=== PATIENT | female | born 1995 | race Caucasian/White ===

== ENCOUNTER 2016-10-05 02:08 | Observation (INO) ==
[2016-10-05] MEDS ORDERED: *HR* Morphine 2 MG/ML SYRINGE IVP ONE (02:56)
--- NOTE | 2016-10-05 03:05 | Emergency Department Note ---
Disposition Clinical Impression: Post-tonsillectomy hemorrhage Disposition: Admitted As Inpatient Condition: Good General Adult HPI - General Chief complaint: ED General Medical Stated complaint: bleeding from tonsillectomy site Time Seen by Provider: 10/05/16 02:18 Source: patient Limitations: no limitations Nursing Notes Reviewed: Yes Vital Signs Reviewed: Yes - History of Present Illness HPI Narrative: Patient is a 21-year-old female with a past medical history of bilateral tonsillectomy and deviated nasal septum repair 5 days ago presenting with a complaint of bleeding that started prior to arrival this evening. Patient states that she woke up from sleep and there was blood running down the back of her throat and she feels as if there is a large swelling on the left side of her throat when she swallows. She is not had any problems since the surgery 5 days ago. She states she can feel the blood draining down the back of her throat and she tries to spit up. She denies feeling lightheaded or presyncopal. Pain Scale: 7 - Related Data Home Medications Medication Instructions Recorded Confirmed Amoxicillin [Amoxil] 500 mg PO TID 10/05/16 10/05/16 HYDROcodone/Acet 7.5/325 mg [[place] 1 tab PO Q4-6H PRN 10/05/16 10/05/16 7.5-325 mg] Norethindrone-E.estradiol-Iron [Lo 1 tab PO DAILY 10/05/16 10/05/16 Loestrin Fe 1-10 Tablet] Prednisolone Sod Phosphate 10 ml PO DAILY 10/05/16 10/05/16 [Prednisolone Sodium Phosphate] Allergies Allergy/AdvReac Type Severity Reaction Status Date / Time cephalexin [From Keflex] Allergy Vomiting Verified 10/05/16 11:11 clindamycin Allergy Hives Verified 10/05/16 11:11 Oxycodone [From OxyContin] Allergy Hives Verified 10/05/16 11:11 All systems ED: reviewed and negative except as stated. Constitutional: Denies: fever, chills ENT ED: Reports: throat pain Cardiovascular: Denies: chest pain, palpitations Respiratory: Denies: cough, dyspnea Gastrointestinal: Denies: abdominal pain, nausea, vomiting Past Medical History - Past Medical History Medical history: Reports: other Surgical history: Reports: cholecystectomy Psychiatric history: Reports: no psych history LEGAL MANAGER history: Reports: non-contributory - Social History Smoking Status: Never smoker Smokeless Tobacco Status: No Alcohol use: Reports: none Drug use: Reports: none Physical Exam Patient is sitting up in bed she is holding a Nyla cup that she is spitting a reddish clear sputum into. - General Limitations: no limitations General appearance: alert, in no apparent distress - Head Head exam: atraumatic, normocephalic, normal inspection - Eye Eye exam: Present: normal appearance - ENT ENT exam: mucous membranes moist, other (Patient has wounds in the back of her throat status post tonsillectomy they are bright red I cannot see any active bleeding however I do see the presence of a large blood clot on the left side of her posterior oropharynx.) - Neck Neck exam: Present: normal inspection, full ROM, trachea midline, other (I did not appreciate any palpable masses, however she does state she has a sensation of a large swelling on the inside of her throat when she is swallowing.) - Chest Chest inspection: Present: normal inspection, symmetric chest wall rise - Respiratory Respiratory exam: Present: normal lung sounds bilaterally. Absent: respiratory distress, wheezes - Cardiovascular Cardiovascular exam: Present: regular rate, normal rhythm, normal heart sounds - Abdominal Exam Abdominal exam: Present: soft, Non-Tender, normal bowel sounds - Extremities Exam Extremities exam: Present: normal inspection, normal capillary refill Course Course Narrative: Patient presents with a complaint of posterior oropharynx bleeding status post tonsillectomy and deviated nasal septum repair 5 days ago. I do not appreciate any active bleeding on exam, however her wounds from her tonsillectomy do appear to be bright red and bloody and she does have a blood clot in the left posterior oropharynx. She is also actively spitting up blood and saliva into a taxicab. I gave the patient ice cold water to drink. We started an IV. I ordered her morphine because she states that she was due for her Vicodin at home for pain. I consulted with Dr. Hyde ENT on-call and she states she will come in to see the patient and requested that we order H&H and coags. - Reevaluation(s) Reevaluation #1: I spoke with Dr. Hyde with ENT on the phone and she requested we order coags and H&H and she will see the patient in the emergency department. Time: 03:00 Reevaluation #2: Patient was evaluated by Dr. Hyde in the room. Dr. Padron took the patient to surgery that she can be properly sedated and have the wound cauterized. She believed this would be the most comfortable approach for the patient. Time: 03:30 Vital Signs Temperature 98 F 10/05/16 02:12 Pulse Rate 111 10/05/16 02:12 Respiratory Rate 16 10/05/16 02:12 Blood Pressure 116/82 10/05/16 02:12 O2 Sat by Pulse Oximetry 98 10/05/16 02:12 Temperature 97.4 F L 10/05/16 11:42 Pulse Rate 84 10/05/16 11:42 Respiratory Rate 16 10/05/16 11:42 Blood Pressure 126/73 10/05/16 11:42 O2 Sat by Pulse Oximetry 97 10/05/16 11:42 Oxygen Delivery Oxygen Delivery Room Air Medical Decision Making - Medical Records Medical records reviewed: Yes I reviewed the patient's medical records. - Lab Data Result diagrams: 10/05/16 03:15 Lab Results 10/05/16 10/05/16 10/05/16 Range/Units 03:15 03:15 03:25 Hgb 11.2 L (11.5-15.4) g/dL Hct 33.3 L (35.3-44.9) % PT 12.4 H (9.4-12.1) Seconds INR 1.1 APTT 25.2 L (26.0-36.0) Seconds Blood Type B POSITIVE Antibody Screen NEGATIVE Attestation Statement - Attestation Attestation: I examined this patient and my medical decision-making was reviewed with the Resident Physician. I agree with the documented findings, disposition and treatment plan as described except to the extent set forth below. Patient to ED with post-tonsillectomy bleeding. Patient [address] Hinton. She woke up during the night with blood in her throat. She has spit up half of a cup of blood. On exams patient has large clots around bilateral postoperative sites in her posterior pharynx. Plan. Patient discussed with ENT was at bedside now. Patient going to the OR.
[2016-10-05] MEDS ORDERED: 0.9 % Sodium Chloride 1,000 ML ONE (03:27)
[2016-10-05 03:30] LABS: Hematocrit 33.3 % (35.3-44.9); Hemoglobin 11.2 g/dL (11.5-15.4)
[2016-10-05 03:36] LABS: INR 1.1; Prothrombin Time 12.4 Seconds (9.4-12.1)
[2016-10-05 03:38] LABS: Activated Partial Thrombo Time 25.2 Seconds (26.0-36.0)
[2016-10-05] MEDS ORDERED: *HR* Midazolam HCl 2 MG/2 ML VIAL ONE (03:44)
[2016-10-05] MEDS ORDERED: *HR* FentaNYL (PF) 100 MCG/2 ML VIAL ONE (03:44)
[2016-10-05] MEDS ORDERED: *HR* Propofol 200 MG/20 ML VIAL IVP ONE ×2 (03:44→04:05)
[2016-10-05] MEDS ORDERED: *HR* Succinylcholine 200 MG/10 ML VIAL IVP ONE (03:44)
[2016-10-05] MEDS ORDERED: *HR* Rocuronium Bromide 50 MG/5 ML VIAL ONE (03:44)
[2016-10-05] MEDS ORDERED: Lidocaine -MPF 2% 2 ML VIAL ONE (03:44)
[2016-10-05] MEDS ORDERED: Ondansetron 4 MG/2 ML VIAL ONE (03:45)
[2016-10-05] MEDS ORDERED: Dexamethasone 4 MG/ML VIAL ONE (03:45)
--- NOTE | 2016-10-05 04:22 | Anesthesia Evaluation PreOp ---
Date of Encounter: 10/05/16 Time of Encounter: 04:22 - Past History Planned Operation: Cauterization Post-Tonsillectomy Bleed Cardiac History: Denies any Significant Hx Pulmonary History: Denies Any Significant HX BUNDLE TIER History: Denies Any Significant HX Other Medical History: Denies Any Significant HX Anesthesia History: Past Anesthesia, Problems (PONV) Test: Negative (10/05/2016) Alcohol Use: none Drug use: none Medications and Allergies Allergies cephalexin [From Keflex] Allergy (Verified 10/05/16 02:16) Vomiting clindamycin Allergy (Verified 01/15/15 13:12) Hives Oxycodone [From OxyContin] Allergy (Verified 01/15/15 13:12) Hives - Meds/Allergy Pre-op Review Medications Reviewed: Yes Allergies Reviewed: Yes Beta Blockers on Current Med List: No Anesthesia Results - Labs 10/05/16 03:15 Laboratory Tests 10/05/16 03:15 PT 12.4 H INR 1.1 APTT 25.2 L - Imaging EKG: report reviewed (01/15/2015 SR) Anesthesia Exam Vital Signs/O2 Sat, Most Current Temp Pulse Resp BP Pulse Ox 98 F 111 16 116/82 98 10/05/16 02:12 10/05/16 02:12 10/05/16 02:12 10/05/16 02:12 10/05/16 02:12 Height: 6'1''/1.85 m Weight: 147 lbs/66.86 kg NPO (# of Hours): 7 Pain Scale: 0 Pain Scale Used: Numeric (1 - 10) - HEENT Pupil (Motor): EOMI Mallampati: II Teeth: Normal Oral Opening: Greater than 3 - BUNDLE TIER LOC: Oriented BUNDLE TIER Motor: Normal RUE, Normal LUE, Normal RLE, Normal LLE, Normal Face BUNDLE TIER Sensory: Normal: RUE, LUE, RLE, LLE, Face - Cardiac Rhythm: Regular Murmur: None - Pulmonary Breath Sounds: bilateral Clear Respiratory Effort: Symmetrical Anesthesia Assess/Plan ASA Score: 1 Modified Brittani Scale for Level of Consciousness: Cooperative, oriented, and tranquil Anesthetic Plan: General Monitoring Plan: Standard Monitors Recovery Plan: PACU
[2016-10-05] MEDS ORDERED: *HR* Morphine 2 MG/ML SYRINGE IVP PRN (04:33)
[2016-10-05] MEDS ORDERED: *HR* Promethazine 25 MG/ML VIAL IVP PRN (04:33)
[2016-10-05] MEDS ORDERED: Scopolamine Patch 1.5 MG PATCH.TD72 ONE (04:33)
[2016-10-05] MEDS ORDERED: *HR* Morphine 10 MG/ML VIAL ONE (04:56)
--- NOTE | 2016-10-05 05:41 | Anesthesia Evaluation Post Op ---
Date of Encounter: 10/05/16 Time of Encounter: 05:39 - Vital Signs Vital Signs: Vital Signs/O2 Sat, Most Current Temp Pulse Resp BP Pulse Ox 97.9 F 87 14 130/90 99 10/05/16 05:15 10/05/16 05:35 10/05/16 05:35 10/05/16 05:35 10/05/16 05:35 - Lungs Lungs: Clear Ascult./Percussion - Airway Airway: Non-obstructed - Cardiovascular Regular Rate - Mental Status Mental Status: Asleep with brisk response to light stimulation - Pain Pain Scale: 3 Pain Scale used: Numeric (1 - 10) - Nausea Vomiting Nausea Vomiting: Not Present - Hydration Hydration: NPO, Has not voided - Discharge PostOp Status: Transfer Patient to floor
[2016-10-05] MEDS ORDERED: Ringers Solution, Lactated 1,000 ML IVC SCH (06:00)
[2016-10-05 11:43] VITALS: BP 126/73
--- NOTE | 2016-10-05 12:09 | Event Note ---
Date of Encounter: 10/05/16 Time of Encounter: 03:[address] [address] ENT - History & Physical ISigned PRELIMINARY DRAFT REPORT UNTIL ELECTRONICALLY SIGNED 0 PATIENT: Gab Simms MR#: [id number] : 1995 AGE/SEX: 21 / F ADMITTED: 09/29/16 OUTSIDE LOCN: LOCATION: [facility] ATTENDING: Yin Hinton DO cc: ; ~ Date of Encounter: 10/05/16 Time of Encounter: 03:30 Assessment and Plan (1) Post-tonsillectomy hemorrhage Status: Acute I recommended return to the OR for control of post tonsillectomy hemorrhage. A consent was signed and understood for procedure with risks of infection/ bleeding. We will plan on observation for a few hours after the procedure. The assessment and plan as outlined above was discussed with the patient and/or family members who expressed understanding and agreement. All questions were answered. History of Present Illness Chief complaint: post tonsillectomy hemorrhage HPI: Ms. Simms is a 21 year old female 21 yo female s/p tonsillectomy, septoplasty, turbinate reduction [address] Hinton. She has been having occasional mild bleeding since the procedure then woke up at 1:30 this morning with significant bleeding. She has been otherwise doing well. Past Med Surg Social Fam HX - Past Medical History Psychiatric history: no psych history - Past Surgical History Surgical History: colectomy - Social History Smoking Status: Never smoker Smokeless Tobacco Status: Yes Alcohol use: rarely Drug use: none Medications and Allergies Amoxicillin [Amoxil] 500 mg PO TID #30 capsule 09/29/16 [Rx] HYDROcodone/Acet 7.5/325 mg [[place] 7.5-325 mg] 1 tab PO Q4-6H PRN #40 tablet [Rx] Ondansetron ODT [Zofran ODT] 4 mg SL Q6H PRN #15 tab.rapdis 09/29/16 [Rx] prednisoLONE [Prelone] 30 mg PO DAILY #40 mls 09/29/16 [Rx] Allergies cephalexin [From Keflex] Allergy (Verified 09/29/16 07:55) Itching clindamycin Allergy (Verified 09/29/16 07:54) Itching ENT - ROS - Constitutional Constitutional ROS: no daytime sleepiness, no fever(s), no headache(s), no lethargy, no snoring, no stops breathing during sleep - EENT Nose, mouth and throat: no abnormal hearing, no bleeding gums, no change in voice, no dental pain, no disequilibrium, no dizziness, no dry mouth, no dysphagia, no epistaxis, no facial pain, no halitosis, no headache(s), no hoarseness, no lip swelling, no mouth lesions, no mouth pain, no nasal congestion, no nasal discharge, no nasal obstruction, no nasal trauma, no neck mass, no neck pain, no nose pain, no odynophagia, no post-nasal drip, no sinus pain, no sinus pressure, no sore throat, no throat swelling, no tongue swelling , no vertigo - Cardiovascular Cardiovascular ROS IM: no chest pain, no chest pain at rest, no chest pain with activity, no dyspnea, no edema, no irregular heart rhythm, no radiating jaw, neck or arm pain, no lightheadedness, no orthopnea, no paroxysmal nocturnal dyspnea, no syncope - Respiratory no cough, no dyspnea, no hemoptysis, no dyspnea on exertion, no wheezing, no snoring, no stridor, no pain on inspiration, no chest congestion, no excessive phlegm production, no change in phlegm color, no pain with cough ENT Exam Initial Vital Signs Temp Pulse Resp BP Pulse Ox 98.5 F 81 20 113/75 100 09/29/16 07:45 09/29/16 07:45 09/29/16 07:45 09/29/16 07:45 09/29/16 07:45 - General physical appearance well developed, well nourished, no distress - Eyes PERRL, normal ocular movement - ENT Other (large fresh blood clot left tonsil fossa, splints in nose) - Neck no masses, trachea midline, no lymphadectomy. negative: deviated trachea, diffuse goiter, limited ROM - Respiratory normal expansion, normal respiratory effort, clear to percussion, clear to auscultation - Neurologic CN 2-12 grossly intact - Psychiatric oriented to time, oriented to person, oriented to place - Additional Findings cardiac: reg rate and rhythm without murmur or rub Results - Labs All other labs normal. 2 Documented By: Myah Hyde MD Signed By: <Electronically signed by Myah Hyde> 10/05/16 0341 2 2 2 DD/ 0330 Initialized By: [id number]
--- NOTE | 2016-10-05 12:10 | Event Note ---
Date of Encounter: 10/05/16 Time of Encounter: 05:[address] [address] Operative Note Signed PRELIMINARY DRAFT REPORT UNTIL ELECTRONICALLY SIGNED 0 PATIENT: Gab Simms MR#: [id number] : 1995 AGE/SEX: 21 / F ADMITTED: 09/29/16 OUTSIDE LOCN: LOCATION: [facility] ATTENDING: Yin Hinton DO cc: Myah Hyde; Yin Hinton; Jessica Gregg; Iain Date of procedure: 10/05/16 Pre-op diagnosis: post tonsillectomy hemorrhage Procedure: return to OR for post tonsillectomy hemorrhage. Implants: none Complications: none Anesthesia: GETA Surgeon: Myah Hyde Estimated blood loss (cc): 5 Procedure in Detail: The patient was brought to the OR and sign in and time out was completed per [facility] protocol. She was given general anesthesia with an endotracheal tube. A [place] jacquelin mouth gag was placed intra orally and suspended from the kruse stand. Examination of the oral cavity revealed a large clot in the left tonsil fossa. The right side was healing well without old or new blood. The clot was removed and the mid and superior pole areas recauterized with suction electrocautery. The inferior pole was also recauterized. No major active bleeding was seen. I observed the patient for several minutes and during that time I suctioned old blood from the stomach with an oral gastric tube. Recheck of the tonsa fossa revealed no bleeding. Total blood loss in the OR after clot removal was << 5 ml. The patient tolerated the procedure well and was stable to the RR. 2 Documented By: Myah Hyde MD Signed By: <Electronically signed by Myah Hyde> 10/05/16 0542 2 2 2 DD/ 0535 Initialized By: [id number]
--- NOTE | 2016-10-05 12:13 | Discharge Summary ---
Date of Encounter: 10/05/16 Time of Encounter: 12:11 - Discharge Diagnosis (1) Post-tonsillectomy hemorrhage Priority: Primary Status: Acute - Discharge Medications Home Medications: Amoxicillin [Amoxil] 500 mg PO TID 10/05/16 [History] HYDROcodone/Acet 7.5/325 mg [[place] 7.5-325 mg] 1 tab PO Q4-6H PRN 10/05/16 [ History] Norethindrone-E.estradiol-Iron [Lo Loestrin Fe 1-10 Tablet] 1 tab PO DAILY 10/05 [History] Prednisolone Sod Phosphate [Prednisolone Sodium Phosphate] 10 ml PO DAILY [History] Allergies/Adverse Reactions: Allergies cephalexin [From Keflex] Allergy (Verified 10/05/16 11:11) Vomiting clindamycin Allergy (Verified 10/05/16 11:11) Hives Oxycodone [From OxyContin] Allergy (Verified 10/05/16 11:11) Hives Date of admission: 10/05/16 03:45 Primary care physician: Jessica Gregg CNP Discharging clinician: Myah Hyde Anticipated date of discharge: 10/05/16 - Patient Status Disposition: Home, Self-Care Condition: Good Functional capacity at discharge: independent ambulation Overall status at discharge: patient is back to baseline - Discharge Instructions Follow Up With: Jessica Gregg CNP [Primary Care Provider] - Additional Instructions: Follow post tonsillectomy medications and diet and plan f/u this Thursday with Dr. Hinton - Diet and Activity Activity: increase activity as tolerated Diet: other (post tonsillectomy diet) - Hospital Course Hospital course: Ms. Simms is a 21 year old female who was returned to the OR for control of post tonsillectomy hemorrhage early this morning. She has had no further bleeding and is tolerating po. She is being D/Cd home in stable condition. - Time Spent with Patient Total time spent providing and/or coordinating discharge services: Greater than 30 minutes ENT Exam Initial Vital Signs Temp Pulse Resp BP Pulse Ox 98 F 111 16 116/82 98 10/05/16 02:12 10/05/16 02:12 10/05/16 02:12 10/05/16 02:12 10/05/16 02:12 - ENT Other (oral cavity/oropharynx with no old or fresh blood and no clots -Hg/Hct 11.1/33.3 and INR 1.1)
== END 2016-10-05 12:35 | disposition home or self-care (01) ==
LOC: 3BNU 02:08 → EMEROO 02:08 → 3BNU 04:15
PROVIDERS: ADMIT Otolaryngology; ATTEND Otolaryngology